=== PATIENT | female | born 2000 | race Caucasian/White ===

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

== ENCOUNTER 2022-11-07 10:53 | Emergency (ER) | payer OTHER ==
[2022-11-07 11:08] VITALS: BP 119/72; PULSE 80; RESP 16; TEMP 98.4
[2022-11-07] MEDS ORDERED: PHENAZOPYRIDINE HCL 100 MG TABLET (FP) PO ONE (11:48)
[2022-11-07] MEDS ORDERED: PHENAZOPYRIDINE HCL 100 MG TABLET (FP) ONE (11:59)
[2022-11-07 12:18] LABS: EPI CELLS 4 /uL (0-25.1); HCG,QUALITATIVE URINE Negative; HYALINE CASTS 0 /uL (0-3.1); URINE APPEARANCE CLOUDY; URINE BACTERIA 82 /uL (0-1359); URINE BILIRUBIN NEGATIVE (NEGATIVE); URINE COLOR RED; URINE GLUCOSE (UA) NEGATIVE (NEGATIVE); URINE KETONE NEGATIVE (NEGATIVE); URINE LEUK ESTERASE 3+ (NEGATIVE); URINE NITRITE NEGATIVE (NEGATIVE); URINE PROTEIN 1+ (NEGATIVE); URINE RBC 7044 /uL (0-23.9); URINE UROBILINOGEN 0.2 mg/dL (0.2-1.0); URINE WBC 2067 /uL (0-25.8)
== END 2022-11-07 12:52 | disposition home or self-care (01) ==
LOC: JERFT 10:53 → JER 10:53 → JERFT 12:52
DX: N30.01 Acute cystitis with hematuria (principal)
CPT/HCPCS: 81003; 84703; 87086; 99283-25

== ENCOUNTER 2023-02-21 15:24 | Emergency (ER) | payer OTHER ==
[2023-02-21 15:31] VITALS: BP 115/62; PULSE 75; RESP 16; TEMP 98.5; BMI 32.1
[2023-02-21 16:35] LABS: HCG,QUALITATIVE URINE Positive
[2023-02-21 16:39] LABS: EPI CELLS 1 /uL (0-25.1); HYALINE CASTS 0 /uL (0-3.1); PH,URINE 6.5 (5.0-8.0); URINE APPEARANCE CLEAR; URINE BACTERIA 3 /uL (0-1359); URINE BILIRUBIN NEGATIVE (NEGATIVE); URINE COLOR RED; URINE GLUCOSE (UA) NEGATIVE (NEGATIVE); URINE KETONE NEGATIVE (NEGATIVE); URINE LEUK ESTERASE TRACE (NEGATIVE); URINE NITRITE NEGATIVE (NEGATIVE); URINE PROTEIN NEGATIVE (NEGATIVE); URINE RBC 4563 /uL (0-23.9); URINE UROBILINOGEN 0.2 mg/dL (0.2-1.0); URINE WBC 13 /uL (0-25.8)
[2023-02-21 17:33] LABS: BASO % 0.6 % (0-2.0); EOS % 2.4 % (0-4.5); HEMATOCRIT 41.2 % (32.4-45.2); HEMOGLOBIN 13.8 GM/dL (10.7-15.3); LYMPH % 13.7 % (8-40); MCH 27.6 pg (25.7-33.7); MCHC 33.7 g/dl (32.0-36.0); MONO % 7.3 % (3.8-10.2); PLATELET COUNT 308 10^3/uL (134-434); RBC 5.02 M/mm3 (3.60-5.2); RDW 13.9 % (11.6-15.6); WHITE BLOOD COUNT 12.2 K/mm3 (4.0-10.0)
[2023-02-21 17:41] LABS: INR 1.14 (0.83-1.09); PROTHROMBIN TIME (PATIENT) 13.2 SEC (9.7-13.0)
[2023-02-21 17:43] LABS: ACTIVATED PTT 31.7 SECONDS (25.2-36.5)
[2023-02-21 17:44] LABS: POTASSIUM 3.8 mmol/L (3.5-5.1)
[2023-02-21 17:46] LABS: BLOOD UREA NITROGEN 6.1 mg/dL (7-18); CALCIUM 9.2 mg/dL (8.5-10.1)
[2023-02-21 17:50] LABS: CREATININE 0.5 mg/dL (0.55-1.3)
[2023-02-21] MEDS ORDERED: ACETAMINOPHEN 500 MG TABLET (FP) PO ONE (18:55)
[2023-02-21] MEDS ORDERED: ACETAMINOPHEN 500 MG TABLET (FP) ONE (19:49)
== END 2023-02-21 20:38 | disposition home or self-care (01) ==
LOC: JER 15:24
DX: O20.9 Hemorrhage in early pregnancy, unspecified (principal); O26.891 Other specified pregnancy related conditions, first trimester; R10.30 Lower abdominal pain, unspecified; Z3A.01 Less than 8 weeks gestation of pregnancy
CPT/HCPCS: 36415; 76817-TC; 80048; 81003; 84702; 84703; 85025; 85610; 85730; 86850; 86900; 86901; 87086; 99284-25

== ENCOUNTER 2023-10-03 18:05 | Inpatient (IN) | payer OTHER ==
[2023-10-03] MEDS ORDERED: BUTORPHANOL TARTRATE 2 MG/ML VIAL IVPUSH PRN (18:54)
[2023-10-03] MEDS: DEXTROSE 5%-LACTATED RINGERS 1,000 ML IV SCH (20:15)
[2023-10-03] MEDS: DINOPROSTONE 10 MG VAGINAL SUPPOSITORY VG ONE (20:25)
[2023-10-03 20:33] LABS: BASO % 0.3 % (0-2.0); EOS % 4.9 % (0-4.5); HEMATOCRIT 41.2 % (32.4-45.2); HEMOGLOBIN 13.9 GM/dL (10.7-15.3); LYMPH % 14.7 % (8-40); MCHC 33.8 g/dl (32.0-36.0); MEAN CELL VOLUME 85.8 fl (80-96); MEAN PLT VOLUME 8.9 fl (7.5-11.1); MONO % 8.1 % (3.8-10.2); PLATELET COUNT 244 10^3/uL (134-434); RDW 14.1 % (11.6-15.6); WHITE BLOOD COUNT 11.5 K/mm3 (4.0-10.0)
[2023-10-03 20:38] LABS: POTASSIUM 4.1 mmol/L (3.5-5.1)
[2023-10-03 20:39] LABS: CALCIUM 8.8 mg/dL (8.5-10.1)
[2023-10-03 20:40] LABS: BLOOD UREA NITROGEN 12.9 mg/dL (7-18)
[2023-10-03 20:43] LABS: CREATININE 0.6 mg/dL (0.55-1.3)
[2023-10-03 20:44] LABS: INR 0.97 (0.83-1.09); PROTHROMBIN TIME (PATIENT) 11.2 SEC (9.7-13.0)
[2023-10-03 20:48] LABS: ACTIVATED PTT 26.3 SECONDS (25.2-36.5)
[2023-10-03 21:35] LABS: HIV INTERPRETATION NEGATIVE (NEGATIVE)
[2023-10-03 21:57] VITALS: BMI 39.4
[2023-10-04] MEDS ORDERED: AMPICILLIN SODIUM 2 GM VIAL ONE (08:12)
[2023-10-04] MEDS: AMPICILLIN - 2 GM in SODIUM CHLORIDE 100 ML IVPB ONE (08:15)
[2023-10-04] MEDS ORDERED: OXYTOCIN 30 UNITS in 0.9% NS 30 UNIT/500 ML INFUS.BAG IVPB ONE (09:18)
[2023-10-04] MEDS: OXYTOCIN 30 UNITS in 0.9% NS 30 UNIT/500 ML INFUS.BAG IVPB SCH (09:30)
[2023-10-04] MEDS ORDERED: FENTANYL/BUPIVACAINE/NS/PF - PCEA - 50 ML DISP.SYRIN EP ONE ×3 (11:25→21:09)
[2023-10-04] MEDS: ELECTROLYTE-148 SOLN 1,000 ML IV SCH (11:30)
[2023-10-04] MEDS: FENTANYL/BUPIVACAINE/NS/PF - PCEA - 50 ML DISP.SYRIN EP SCH (12:10)
[2023-10-04] MEDS: AMPICILLIN - 1 GM in SODIUM CHLORIDE 100 ML IVPB SCH (12:30)
[2023-10-04] MEDS ORDERED: AMPICILLIN SODIUM 1 GM VIAL ONE ×3 (12:30→21:05)
[2023-10-04] MEDS ORDERED: NALOXONE HCL 0.4 MG/ML VIAL IVPUSH PRN (13:01)
[2023-10-04] MEDS ORDERED: OXYTOCIN 20 UNITS in 0.9% NS 20 UNIT/1,000 ML INFUS.BAG IV ONE (22:57)
[2023-10-04] MEDS ORDERED: LIDOCAINE HCL 1% PRESERVATIVE FREE - 30ML VIAL ONE (22:57)
[2023-10-04] MEDS: OXYTOCIN 20 UNITS in 0.9% NS 20 UNIT/1,000 ML INFUS.BAG IV SCH (23:45)
[2023-10-04] MEDS: METHYLERGONOVINE MALEATE 0.2 MG/1 ML AMP IM PRN (23:51)
[2023-10-05] MEDS ORDERED: BENZOCAINE 28 GM HEMORRHOIDAL OINTMENT TP PRN (00:20)
[2023-10-05] MEDS ORDERED: BENZOCAINE 20% 57 GM BOTTLE TP PRN (00:20)
[2023-10-05] MEDS ORDERED: WITCH HAZEL 50% (TUCKS) 40 PAD/JAR PAD TP PRN (00:20)
[2023-10-05] MEDS ORDERED: ACETAMINOPHEN 325 MG TABLET (FP) PO PRN (00:20)
[2023-10-05] MEDS ORDERED: oxyCODONE HCL 5 MG TABLET PO PRN (00:20)
[2023-10-05] MEDS ORDERED: BISACODYL 10 MG SUPP.RECT RC PRN (00:20)
[2023-10-05 00:39] LABS: CORD BASE EXCESS -5.6 mmol/L (0-2); CORD HCO3 19.2 mmHg (20-29); CORD PCO2 32.6 mmHg (30-78); CORD pH 7.387 (7.14-7.44)
[2023-10-05 00:44] LABS: CORD BASE EXCESS -8.6 mmol/L (0-2); CORD HCO3 19.7 mmHg (20-29); CORD PCO2 51.1 mmHg (30-78); CORD pH 7.203 (7.14-7.44)
[2023-10-05] MEDS: FERROUS SO4 325 MG TABLET (FP) PO SCH (08:32)
[2023-10-05] MEDS: PRENATAL VITAMINS W/ FOLIC ACID TABLET (FP) PO SCH (09:43)
[2023-10-05] MEDS: FLU VACCINE (FLULAVAL) PF 60 MCG/0.5 ML SYRINGE 2023-2024 IM ONE (18:07)
[2023-10-05] MEDS: PROMETHAZINE HCL 25 MG/1 ML VIAL IVPB ONE (19:22)
[2023-10-05] MEDS: IBUPROFEN 600 MG TABLET (FP) PO PRN (20:45)
[2023-10-06 08:01] LABS: BASO % 0.3 % (0-2.0); EOS % 2.7 % (0-4.5); HEMATOCRIT 28.4 % (32.4-45.2); HEMOGLOBIN 9.8 GM/dL (10.7-15.3); LYMPH % 8.8 % (8-40); MCHC 34.4 g/dl (32.0-36.0); MEAN CELL VOLUME 87.3 fl (80-96); MEAN PLT VOLUME 8.9 fl (7.5-11.1); MONO % 8.6 % (3.8-10.2); NEUT % 79.6 % (42.8-82.8); PLATELET COUNT 162 10^3/uL (134-434); RBC 3.25 M/mm3 (3.60-5.2); RDW 13.7 % (11.6-15.6); WHITE BLOOD COUNT 10.6 K/mm3 (4.0-10.0)
[2023-10-06 10:40] VITALS: BP 106/60; PULSE 95; RESP 16; TEMP 98.2
[2023-10-06] MEDS ORDERED: SENNOSIDES/DOCUSATE COMBO (SENNA PLUS) TABLET (UD) PO PRN (22:00)
== END 2023-10-06 14:35 | disposition home or self-care (01) | DRG 560 ==
LOC: JLDR 18:05 → J3W 10-05 02:51
PROVIDERS: ADMIT Obstetrics & Gynecology; ATTEND Obstetrics & Gynecology
PROC: 3E0P7VZ Introduction of Hormone into Female Reproductive, Via Natural or Artificial Opening (ICD-10-PCS; 2023-10-03)
PROC: 10E0XZZ Delivery of Products of Conception, External Approach (ICD-10-PCS; principal; 2023-10-04)
PROC: 0HQ9XZZ Repair Perineum Skin, External Approach (ICD-10-PCS; 2023-10-04)
PROC: 10907ZC Drainage of Amniotic Fluid, Therapeutic from Products of Conception, Via Natural or Artificial Opening (ICD-10-PCS; 2023-10-04)
DX: O41.03X0 Oligohydramnios, third trimester, not applicable or unspecified (principal); O99.824 Streptococcus B carrier state complicating childbirth; O70.0 First degree perineal laceration during delivery; Z3A.39 39 weeks gestation of pregnancy; Z37.0 Single live birth
CPT/HCPCS: 36415; 36600; 80048; 82803; 85025; 85610; 85730; 86780; 86850; 86900; 86901; 87389; 90686; G0008